=== PATIENT | male | born 1960 | race Caucasian/White ===

== ENCOUNTER 2017-01-20 00:31 | Emergency (ER) | payer MEDICAID, OTHER ==
[~2017-01-20] VITALS: Ht 167.6 cm; Wt 72.6 kg
--- NOTE | 2017-01-20 01:22 | NUR ---
Patient discharged to home in stable conditon. Written and verbal after care instructions given. Patient verbalizes understanding of instructions.
== END 2017-01-20 01:26 | disposition home or self-care (01) ==
LOC: ER 00:34
DX: G89.29 Other chronic pain (principal); M25.531 Pain in right wrist; F90.9 Attention-deficit hyperactivity disorder, unspecified type
CPT/HCPCS: A4663